=== PATIENT | female | born 1970 | race Caucasian/White ===

== ENCOUNTER → 2016-12-20 | Outpatient (CLI) | payer BC ==
--- NOTE | 2016-12-20 20:25 | Diagnostic Imaging Report ---
Bilateral screening mammogram 2D views with tomosynthesis The current study was also evaluated with a Computer Aided Detection (CAD) system. Indication: Screening. No current complaints stated on the questionnaire. COMPARISON: 11/18/15. FINDINGS: The breasts are composed of heterogeneously dense parenchyma which may decrease mammographic sensitivity. There is no mass, architectural distortion or suspicious cluster of calcifications. Allowing for technique and positional differences, no suspicious change is seen. IMPRESSION: Dense breasts with no definite change. ACR BI-RADS Category 2: Benign findings. Result letter will be mailed to the patient. Note: At least 10% of breast cancer is not imaged by mammography. Dictated by: Dictated on workstation # [id number]
== END ==
LOC: RAD 09:37
PROVIDERS: ATTEND Family Medicine
DX: Z12.31 Encounter for screening mammogram for malignant neoplasm of breast (principal)
CPT/HCPCS: 77067

== ENCOUNTER → 2017-07-03 | Outpatient (CLI) | payer BC ==
--- NOTE | 2017-07-03 11:34 | Diagnostic Imaging Report ---
INDICATION: Right sided pelvic pain and right ovarian cyst. No prior studies are available for comparison. Transabdominal and transvaginal pelvic sonography was performed. The uterus measures 6.9 x 5.2 x 4.2 cm. No uterine mass is detected. The endometrium is approximately 10 mm in thickness. The right ovary measures 1.9 x 1.6 x 2.0 cm, and the left ovary measures 2.1 x 2.8 x 1.2 cm. There is blood flow to both ovaries. No adnexal mass or free fluid is detected. IMPRESSION: Unremarkable transabdominal and transvaginal pelvic ultrasound. Dictated by: Dictated on workstation # [id number]
== END ==
LOC: RAD 09:57
DX: N83.201 Unspecified ovarian cyst, right side (principal)
CPT/HCPCS: 76830; 76856

== ENCOUNTER → 2018-02-06 | Outpatient (CLI) | payer BC ==
--- NOTE | 2018-02-06 12:40 | Diagnostic Imaging Report ---
Indication: Screening for osteoporosis. Comparison is made with prior DEXA scan from 09/16/2014. Bone mineral analysis of the lumbar spine and both hips was performed. Bone mineral density lumbar spine L2-L4 is 1.001 with T score -1.7. This compares with 0.983 and -1.8. Bone mineral density left femoral neck is 0.820 with T score of -1.6. This compares with 0.769 and -1.9. Bone mineral density right femoral neck is 0.787 with T score -1.8. This compares with 0.774 and -1.9. IMPRESSION: Continued findings of osteopenia of the lumbar spine and bilateral femoral necks. Dictated by: Dictated on workstation # [id number]
--- NOTE | 2018-02-06 19:12 | Diagnostic Imaging Report ---
INDICATION: Routine screening. COMPARISON: Comparison is made with prior mammograms from 12/20/2016 and 11/18/2015. TECHNIQUE: 2D and 3D bilateral screening mammography was performed with computer-aided detection (CAD) system. FINDINGS: Both breasts are heterogeneously dense, limiting the sensitivity of mammography. The parenchymal pattern is stable. No mass or malignant appearing microcalcifications are seen. The axillae are unremarkable. IMPRESSION: No mammographic features suspicious for malignancy are identified. ACR BI-RADS Category 1: Negative. Result letter will be mailed to the patient. Note: At least 10% of breast cancer is not imaged by mammography. Dictated by: Dictated on workstation # [id number]
== END ==
LOC: RAD 10:08
PROVIDERS: ATTEND Family Medicine
DX: Z12.31 Encounter for screening mammogram for malignant neoplasm of breast (principal); Z13.820 Encounter for screening for osteoporosis; M85.89 Other specified disorders of bone density and structure, multiple sites
CPT/HCPCS: 77067; 77080

== ENCOUNTER → 2019-04-09 | Outpatient (CLI) | payer BC ==
--- NOTE | 2019-04-09 09:16 | Diagnostic Imaging Report ---
PROCEDURE: US Hepatic (Liver). TECHNIQUE: Multiple real-time grayscale images were obtained over the right upper quadrant in various projections. INDICATION: Elevated liver enzymes. FINDINGS: The liver is normal in size at 15 cm. No discrete liver mass is identified. The portal vein is patent and shows normal direction of flow. Gallbladder is without stones or sludge. No wall thickening or biliary ductal dilatation is identified. The pancreas is unremarkable. IVC is unremarkable. Right kidney is without calculi or hydronephrosis. IMPRESSION: Unremarkable right upper quadrant ultrasound. Dictated by: Dictated on workstation # [id number]
== END ==
LOC: RAD 08:29
PROVIDERS: ATTEND Family Medicine
DX: R94.5 Abnormal results of liver function studies (principal)
CPT/HCPCS: 76705

== ENCOUNTER → 2019-04-10 | Outpatient (CLI) | payer BC ==
--- NOTE | 2019-04-10 12:05 | Diagnostic Imaging Report ---
INDICATION: Routine screening. Comparison is made with prior mammograms from 02/06/2018 and 12/20/2016. 2-D and 3-D bilateral screening mammography was performed The current study was also evaluated with a Computer Aided Detection (CAD) system. 3-D tomosynthesis was also performed and reviewed. FINDINGS: Both breasts are heterogeneously dense, limiting the sensitivity of mammography. The parenchymal pattern is stable. No mass or malignant-appearing microcalcifications are seen. Axillae are unremarkable. IMPRESSION: No mammographic features suspicious for malignancy are identified. ACR BI-RADS Category 1: Negative. Result letter will be mailed to the patient. Note: At least 10% of breast cancer is not imaged by mammography. Dictated by: Dictated on workstation # [id number]
== END ==
LOC: RAD 10:18
PROVIDERS: ATTEND Family Medicine
DX: Z12.31 Encounter for screening mammogram for malignant neoplasm of breast (principal)
CPT/HCPCS: 77067

== ENCOUNTER → 2020-05-17 | Outpatient (CLI) | payer BC ==
--- NOTE | 2020-05-17 09:35 | Diagnostic Imaging Report ---
INDICATION: Screening for osteoporosis, perimenopausal. COMPARISON: February 06, 2018. FINDINGS: AP Spine L1-L4: [BMD (g/cm2): 1.012] [T-Score: -1.6] [Z-Score: -1.0] [BMD Previous: 1.001] [BMD % Change: 1.1] LT Hip Neck: [BMD (g/cm2): 0.803] [T-Score: -1.7] [Z-Score: -0.8] LT Hip Total: [BMD (g/cm2):0.811] [T-Score:-1.6] [Z-Score: -1.0] [BMD Previous: 0.825] [BMD % Change: -1.7] RT Hip Neck: [BMD (g/cm2):0.800] [T-Score:-1.7] [Z-Score:-0.8] RT Hip Total: [BMD (g/cm2):0.790] [T-score:-1.7] [Z-Score:-1.1] [BMD Previous:0.802] [BMD % Change:-1.5] *Indicates significant change from prior examination based on 95% confidence level. World Health Organization criteria for BMD interpretation classify patients as Normal (T-score at or above -1.0), Osteopenic (T-score between -1.0 and -2.5) or Osteoporotic (T-score at or below -2.5). LIMITATIONS AND MODIFICATION: None. FRACTURE RISK (FRAX SCORE): The ten year probability of (%): Major Osteoporotic Fracture: [5.6] Hip Fracture: [0.6] IMPRESSION: 1. Osteopenia (Low bone mass). 2. No significant change in bone mineral density since prior examination. 3. See below National Osteoporosis Foundation guidelines on when to potentially initiate pharmacologic therapy. Based on the National Osteoporosis Foundation Guidelines, pharmacologic treatment should be initiated in any of the following, unless clinical conditions suggest otherwise: * Any patient with prior fragility fracture of the hip or vertebrae. A spine fracture indicates 5X risk for subsequent spine fracture and 2X risk for subsequent hip fracture. * Osteoporosis (T-score <-2.5). * Postmenopausal women and men age 50 and older with low bone mass/osteopenia (T-score between -1.0 and -2.5) by DXA and 10-year major osteoporotic fracture greater than 20% or a 10-year probability of hip fracture greater than 3%. These fracture risks are supplied above in the FRAX score, if applicable. * Clinician judgement and/or patient preferences may indicate treatment for people with 10-year fracture probabilities above or below these levels. Dictated by: Dictated on workstation # [id number]
--- NOTE | 2020-05-17 10:40 | Diagnostic Imaging Report ---
CLINICAL INDICATION: Patient with Tato's thyroiditis and goiter. COMPARISONS: Ultrasound of the thyroid gland dated 09/17/2011 FINDINGS: THYROID NODULES: There is an 8mm by 6 mm heterogeneous hypoechoic slightly ill-defined area involving the midportion of the right thyroid lobe which is mainly seen on the sagittal view and not well delineated on the transverse view. There is no other nodule seen. The previously seen hypoechoic nodule involving the right thyroid lobe is not well delineated on this exam and may have resolved. THYROID GLAND: There is interval progression of diffuse heterogeneous thyroid parenchyma with mixed hypoechoic and iso echogenicity. There is normal appearing Doppler flow noted. The right lobe measures 4.4 cm x 1.7 cm x 1.4 cm and the left lobe measures 4.3 cm x 1.3 cm x 1.0 cm in their three dimensions. ISTHMUS: The isthmus is unremarkable and measures 3 mm in thickness. IMPRESSION: 1: There is interval progression of diffuse heterogeneity seen throughout the thyroid gland. 2: There is a roughly 8 mm heterogeneous hypoechoic ill-defined area involving the midportion of the right thyroid lobe. This may represent an area of heterogeneity or a nodule. Follow-up imaging would help better evaluate. 3: The previously seen right thyroid lobe nodule is not seen on this exam and may be resolved. Dictated by: Dictated on workstation # [id number]
--- NOTE | 2020-05-17 11:38 | Diagnostic Imaging Report ---
INDICATION: Routine screening. COMPARISON: 04/10/2019 and 02/06/2018. TECHNIQUE: 2D and 3D bilateral screening mammography was performed with CAD. FINDINGS: Both breasts are heterogeneously dense, limiting the sensitivity of mammography. The parenchymal pattern is stable. No mass or malignant appearing microcalcifications are seen. The axillae are unremarkable. IMPRESSION: No mammographic features suspicious for malignancy are identified. ACR BI-RADS Category 1: Negative. Result letter will be mailed to the patient. Note: At least 10% of breast cancer is not imaged by mammography. Dictated by: Dictated on workstation # [id number]
== END ==
LOC: RAD 08:00
PROVIDERS: ATTEND Family Medicine
DX: Z12.31 Encounter for screening mammogram for malignant neoplasm of breast (principal); E06.3 Autoimmune thyroiditis; E04.9 Nontoxic goiter, unspecified; M85.80 Other specified disorders of bone density and structure, unspecified site; Z78.0 Asymptomatic menopausal state
CPT/HCPCS: 76536; 77063; 77067; 77080

== ENCOUNTER → 2021-11-02 | Outpatient (CLI) | payer BC ==
--- NOTE | 2021-11-02 13:10 | Diagnostic Imaging Report ---
PROCEDURE: US Thyroid. TECHNIQUE: Multiple real-time grayscale images were obtained of the thyroid in various projections. INDICATION: Tato's thyroiditis, thyroid nodule. COMPARISON: May 17, 2020. FINDINGS: The right lobe of the thyroid gland measures 5.1 x 1.1 x 1.1 cm. It demonstrates a mildly heterogeneous appearance, though less heterogeneous than the prior examination. Previously suggested subcentimeter nodule within the right thyroid lobe is not definitely seen on today's examination. No new right thyroid nodules. The left lobe of the thyroid gland measures 4.3 x 1.0 x 1.0 cm. It demonstrates a mildly heterogeneous echotexture, though less heterogeneous than the prior examination. No discrete thyroid nodule. The isthmus is unremarkable. IMPRESSION: Mildly heterogeneous thyroid gland, though less heterogeneous than the prior examination. This can be seen secondary to sequelae of thyroiditis. No discrete thyroid nodule with previously suggested right thyroid nodule no longer visualized. Dictated by: Dictated on workstation # [id number]
--- NOTE | 2021-11-02 17:43 | Diagnostic Imaging Report ---
3-D Bilateral Screening Mammogram COMPARISON: 05/17/2020, 04/10/2019, 02/06/2018 The current study was also evaluated with a Computed Aided Detection (CAD) system. At this time there are no current complaints. The fibroglandular tissue in both breasts is heterogeneously dense. This does limit the sensitivity of this exam. When compared to the previous study there does not appear to have been any significant change. There is no primary or secondary sign of malignancy noted. IMPRESSION: There is no evidence for malignancy. BI-RADS CATEGORY: 1 NEGATIVE ACR BI-RADS Category 1: Negative. Result letter will be mailed to the patient. Note: At least 10% of breast cancer is not imaged by mammography. Dictated by: Dictated on workstation # [id number]
== END ==
LOC: RAD 10:53
PROVIDERS: ATTEND Family Medicine
DX: Z12.31 Encounter for screening mammogram for malignant neoplasm of breast (principal); E06.3 Autoimmune thyroiditis; E03.9 Hypothyroidism, unspecified; E04.2 Nontoxic multinodular goiter
CPT/HCPCS: 76536; 77063; 77067

== ENCOUNTER 2022-09-24 13:28 | Outpatient (RCR) | payer BC | END 2022-10-02 13:49 | disposition home or self-care (01) | PROVIDERS: ATTEND Family Medicine | DX: N39.3 Stress incontinence (female) (male) (principal) ==